=== PATIENT | male | born 1965 | race African-American/Black ===

== ENCOUNTER 2019-04-14 12:54 | Emergency (ER) | payer MEDICAID ==
[~2019-04-14] VITALS: Ht 188 cm; Wt 88.5 kg
[2019-04-14 12:54] VITALS: BP_SYST 138
--- NOTE | 2019-04-14 12:54 | NUR ---
Patient to ER bed 7 to gown for evaluation. Side rails up.
--- NOTE | 2019-04-14 12:55 | NUR ---
Patient is awake, alert, and oriented x4. Patient is complaining of throbbing headache x2 days, pressure in ears bilaterally. No other complaints.
--- NOTE | 2019-04-14 13:10 | NUR ---
ER Dr. Bauer at bedside examining patient.
[2019-04-14] MEDS ORDERED: ACETAMINOPHEN 325 MG TABLET PO ONE (13:15)
[2019-04-14] MEDS ORDERED: IBUPROFEN 600 MG TABLET PO ONE (13:15)
[2019-04-14] MEDS ORDERED: KETOROLAC TROMETHAMINE 30 MG VIAL IM ONE (14:45)
[2019-04-14] MEDS ORDERED: DEXAMETHASONE SOD PHOSPHATE 10 MG/ML VIAL IM ONE (14:45)
[2019-04-14 14:56] VITALS: BP_SYST 134
--- NOTE | 2019-04-14 14:56 | NUR ---
Patient given written and verbal discharge instructions and verbalizes understanding. ER MD discussed with patient the results and treatment provided. Patient in stable condition. ID arm band removed. Rx of motrin, tramadol, zyrtec, zofran given. Patient educated on pain management and to follow up with PMD. Pain Scale 8/10, Dr. Bauer is aware. Opportunity for questions provided and answered. Medication side effect fact sheet provided.
== END 2019-04-14 14:56 | disposition home or self-care (01) ==
LOC: SED 12:54
DX: R51 Headache (principal); J45.909 Unspecified asthma, uncomplicated
CPT/HCPCS: 70450; 96372; 99284; J1100; J1885